=== PATIENT | female | born 2000 | race Caucasian/White ===

== ENCOUNTER 2022-09-16 08:15 | Outpatient (RCR) | payer OTHER, SELFPAY ==
--- NOTE | 2022-08-04 16:39 | PT.OIE ---
Current Diagnoses Stress incontinence (female) (male) (08/04/22) Visit Care Team Role Provider Type Leeanna Bruno PA-C Attending Provider Non-Staff Family Provider Primary Care Provider Referring Provider Specialty: Medical Address: [address] [place] [address] [place], [place], [address] Email: Physical Therapy Initial Evaluation PT-OP-A Visit Information Start: 08/04/22 13:33 Freq: Status: Active Protocol: Document 08/04/22 13:47 AMB (Rec: 08/04/22 14:29 AMB [id number]) Out-Patient Physical Therapy Visit Information Visit Information Visit Type Initial Evaluation Visit Start Time 13:45 Visit Stop Time 14:30 Total Visit Minutes 45 Visit Number 1 PT-OP-B Current Condition Start: 08/04/22 13:33 Freq: Status: Active Protocol: Document 08/04/22 13:47 AMB (Rec: 08/04/22 14:29 AMB [id number]) Current Condition History of Current Condition Onset Date 2020 Current Complaints JAMIL History of Current Condition 1st degree tear vaginal delivery. Leaking started during . Leaking with cough, sneeze, being scared, crunches, weightlifting. Does have back pain with left leg n/t in calf. Longer history of urinary frequency (sometimes has to go to the bathroom right after going) not really sure how long she voids for, thinks maybe every hour. May have a bit of leaking after getting off of toilet. Hasn't really been doing kegels. Personal Factors Other Personal Factors That May Effect migraines, active [place] [employer], Therapy/Recovery back pain PT-OP-C Subjective Start: 08/04/22 13:33 Freq: Status: Active Protocol: Document 08/04/22 13:45 AMB (Rec: 08/04/22 16:27 AMB [id number]) Patient Questionnaires Pelvic Pain and Urgency/Frequency Patient Symptom Scale Pelvic Pain Score 10 PT-OP-I Pelvic Floor Start: 08/04/22 13:33 Freq: Status: Active Protocol: Document 08/04/22 13:45 AMB (Rec: 08/04/22 16:27 AMB [id number]) Pelvic Floor Assessment Urine Pelvic Floor Surgery No Urinary Symptoms Urge Sensation,Dribbling After Urination Leakage Cause Cough,Exercise,Lifting,Sneeze Leaks Per Day daily Voiding Frequency hourly Nocturia 0 Bowel Other Bowel Symptoms denies fecal incontinence Pelvic Clock Pelvic Clock Other no tenderness/tightness noted Prolapse Prolapse Comments none visible, pt denies pelvic heaviness Contraction Ability Voluntary Contraction Weak Voluntary Relaxation Moderate Manual Muscle Testing Left 1 Manual Muscle Testing Right 1 Manual Muscle Testing Anterior 1 Manual Muscle Testing Posterior 2 Muscle Endurance (Seconds) 3 Number of Quick Contractions In 10 3 Seconds Comments Pelvic Floor Comments Pelvic floor fatigues very quickly, really just a flicker of a contraction PT-OP-T Assessment and Plan Start: 08/04/22 13:33 Freq: Status: Active Protocol: Document 08/04/22 13:45 AMB (Rec: 08/04/22 16:39 AMB [id number]) Physical Therapy Assessment Rehab Potential Rehabilitation Potential Good Evaluation Complexity Number of Personal Factors/Comorbidities 1-2 Number of Body Systems Impaired 1-2 Clinical Presentation at Evaluation Stable Impairments Impairments Activity Tolerance,Strength Goals Two Impairment Continence Short Term Goal (STG) Sulma will cough without leaking. STG Duration 5 weeks Revenue Tax Specialist Goal (LTG) Sulma will lift weights without leaking. LTG Duration 10 weeks One Impairment Pelvic floor strength Short Term Goal (STG) Sulma will show improvee her pelvic floor strength by kim for 10 seconds without compensation. STG Duration 5 weeks Custodial Goal (LTG) Sulma will show improved pelvic floor strength by kim her pelvic floor while moving from sit to stand . LTG Duration 10 weeks Assessment Summary Assessment Sulma attends therapy with significant JAMIL after the of her child 15 months ago. She had poor pelvic floor strength, and was only able to hold a weak contraction for 3 seconds. She will benefit from physical therapy to help her strengthen her pelvic floor so that she can reduce her leaking with cough, sneeze, and exercise. Physical Therapy Plan Frequency and Duration Frequency of Treatment 1x/Week Duration of treatment (weeks) 10 Plan of Care Start Date 08/04/22 Plan of Care End Date 10/13/22 Therapeutic Interventions Therapeutic Interventions Home Exercise Program,Manual Therapy,Neuromuscular Re- education,Self-Care/Home Management,Therapeutic Activities,Therapeutic Exercises Modalities Biofeedback,Electric Stimulation Next Visit Focus/Plan Next Note Type Treatment Note Next Visit Plan consider sEMG, start pelvic floor strengthening in supine, seated
--- NOTE | 2022-08-04 16:40 | PT.OPPOC ---
Physical, Occupational & Speech Therapy At [facility] Current Diagnoses Stress incontinence (female) (male) (08/04/22) Visit Care Team Role Provider Type Leeanna Bruno PA-C Attending Provider Non-Staff Family Provider Primary Care Provider Referring Provider Specialty: Medical Address: [address] [place] [address] [place], [address] Email: Plan Of Care PT-OP-T Assessment and Plan Start: 08/04/22 13:33 Freq: Status: Active Protocol: Document 08/04/22 13:45 AMB (Rec: 08/04/22 16:39 AMB [id number]) Physical Therapy Assessment Rehab Potential Rehabilitation Potential Good Evaluation Complexity Number of Personal Factors/Comorbidities 1-2 Number of Body Systems Impaired 1-2 Clinical Presentation at Evaluation Stable Impairments Impairments Activity Tolerance,Strength Goals Two Impairment Continence Short Term Goal (STG) Sulma will cough without leaking. STG Duration 5 weeks Residential Goal (LTG) Sulma will lift weights without leaking. LTG Duration 10 weeks One Impairment Pelvic floor strength Short Term Goal (STG) Sulma will show improvee her pelvic floor strength by kim for 10 seconds without compensation. STG Duration 5 weeks Assembler Metal Furniture Goal (LTG) Sulma will show improved pelvic floor strength by kim her pelvic floor while moving from sit to stand . LTG Duration 10 weeks Assessment Summary Assessment Sulma attends therapy with significant JAMIL after the of her child 15 months ago. She had poor pelvic floor strength, and was only able to hold a weak contraction for 3 seconds. She will benefit from physical therapy to help her strengthen her pelvic floor so that she can reduce her leaking with cough, sneeze, and exercise. Physical Therapy Plan Frequency and Duration Frequency of Treatment 1x/Week Duration of treatment (weeks) 10 Plan of Care Start Date 08/04/22 Plan of Care End Date 10/13/22 Therapeutic Interventions Therapeutic Interventions Home Exercise Program,Manual Therapy,Neuromuscular Re- education,Self-Care/Home Management,Therapeutic Activities,Therapeutic Exercises Modalities Biofeedback,Electric Stimulation Next Visit Focus/Plan Next Note Type Treatment Note Next Visit Plan consider sEMG, start pelvic floor strengthening in supine, seated Plan of Care Dates Plan of Care Start Date 08/04/22 Plan of Care End Date 10/13/22 Electronically Signed by: Cynthia Wood, IMELDA 08/04/22 1640 If you are in agreement with this Plan of Care, please return a signed and dated copy. I have reviewed this Plan of Care and certify that the skilled therapy services above are required to meet the patient?s needs. Physician Signature Date Printed Name and Credentials Clinical Instructor Signature Printed Name and Credentials
--- NOTE | 2022-08-19 08:59 | PT.OTN ---
Current Diagnoses Stress incontinence (female) (male) (08/19/22) Physical Therapy Treatment Note PT-OP-A Visit Information Start: 08/04/22 13:33 Freq: Status: Active Protocol: Document 08/19/22 08:08 AMB (Rec: 08/19/22 08:59 AMB [id number]) Out-Patient Physical Therapy Visit Information Visit Information Visit Type Treatment Note Visit Start Time 08:15 Visit Stop Time 09:00 Total Visit Minutes 45 Visit Number 2 PT-OP-B Current Condition Start: 08/04/22 13:33 Freq: Status: Active Protocol: Document 08/04/22 13:47 AMB (Rec: 08/04/22 14:29 AMB [id number]) Current Condition History of Current Condition Onset Date 2020 Current Complaints JAMIL History of Current Condition 1st degree tear vaginal delivery. Leaking started during . Leaking with cough, sneeze, being scared, crunches, weightlifting. Does have back pain with left leg n/t in calf. Longer history of urinary frequency (sometimes has to go to the bathroom right after going) not really sure how long she voids for, thinks maybe every hour. May have a bit of leaking after getting off of toilet. Hasn't really been doing kegels. Personal Factors Other Personal Factors That May Effect migraines, active duty [employer], Therapy/Recovery back pain PT-OP-C Subjective Start: 08/04/22 13:33 Freq: Status: Active Protocol: Document 08/19/22 08:08 AMB (Rec: 08/19/22 08:59 AMB [id number]) OP-PT Subjective Patient Comments Patient Comments Pt reports toe fracture, is in a boot, back is a bit irritated. Pt is noticing it is challenging to breathe and contract pelvic floor at the same time. PT-OP-I Pelvic Floor Start: 08/04/22 13:33 Freq: Status: Active Protocol: Document 08/04/22 13:45 AMB (Rec: 08/04/22 16:27 AMB [id number]) Pelvic Floor Assessment Urine Pelvic Floor Surgery No Urinary Symptoms Urge Sensation,Dribbling After Urination Leakage Cause Cough,Exercise,Lifting,Sneeze Leaks Per Day daily Voiding Frequency hourly Nocturia 0 Bowel Other Bowel Symptoms denies fecal incontinence Pelvic Clock Pelvic Clock Other no tenderness/tightness noted Prolapse Prolapse Comments none visible, pt denies pelvic heaviness Contraction Ability Voluntary Contraction Weak Voluntary Relaxation Moderate Manual Muscle Testing Left 1 Manual Muscle Testing Right 1 Manual Muscle Testing Anterior 1 Manual Muscle Testing Posterior 2 Muscle Endurance (Seconds) 3 Number of Quick Contractions In 10 3 Seconds Comments Pelvic Floor Comments Pelvic floor fatigues very quickly, really just a flicker of a contraction PT-OP-Q Treatments Start: 08/04/22 13:33 Freq: Status: Active Protocol: Document 08/19/22 08:08 AMB (Rec: 08/19/22 08:59 AMB [id number]) Therapeutic Exercises Supine Exercises 3 Supine Exercise Name hooklying bent knee lift Reps/Minutes 10 2 Supine Exercise Name ball squeeze in hooklying Reps/Minutes 10 Comments pelvic floor contract, cue breath 1 Supine Exercise Name bent knee fall out Reps/Minutes 10 Comments pelvic floor contraction Other Exercises quadruped UE flex Reps/Minutes 10 Comments PF, breathe quadruped Other Exercise Name long holds Comments PF, breathe PT-OP-T Assessment and Plan Start: 08/04/22 13:33 Freq: Status: Active Protocol: Document 08/19/22 08:08 AMB (Rec: 08/19/22 08:59 AMB [id number]) Physical Therapy Assessment Goals Two Impairment Continence Short Term Goal (STG) Sulma will cough without leaking. STG Duration 5 weeks Insole Presser Goal (LTG) Sulma will lift weights without leaking. LTG Duration 10 weeks One Impairment Pelvic floor strength Short Term Goal (STG) Sulma will show improvee her pelvic floor strength by kim for 10 seconds without compensation. STG Duration 5 weeks Halfway Goal (LTG) Sulma will show improved pelvic floor strength by kim her pelvic floor while moving from sit to stand . LTG Duration 10 weeks Assessment Summary Assessment Sulma is doing well with her exercises, needs cues for breathing, given written handout for progressing HEP over the next two weeks, encouraged to continue to contract pelvic floor when lifting in her every day life. Physical Therapy Plan Frequency and Duration Frequency of Treatment 1x/Week Duration of treatment (weeks) 10 Plan of Care Start Date 08/04/22 Plan of Care End Date 10/13/22 Therapeutic Interventions Therapeutic Interventions Home Exercise Program,Manual Therapy,Neuromuscular Re- education,Self-Care/Home Management,Therapeutic Activities,Therapeutic Exercises Modalities Biofeedback,Electric Stimulation Next Visit Focus/Plan Next Note Type Treatment Note Next Visit Plan consider sEMG, start pelvic floor strengthening in supine, seated
--- NOTE | 2022-09-02 15:58 | PT.OTN ---
Current Diagnoses Stress incontinence (female) (male) (09/02/22) Physical Therapy Treatment Note PT-OP-A Visit Information Start: 08/04/22 13:33 Freq: Status: Active Protocol: Document 09/02/22 08:14 AMB (Rec: 09/02/22 09:11 AMB [id number]) Out-Patient Physical Therapy Visit Information Visit Information Visit Type Treatment Note Visit Start Time 08:15 Visit Stop Time 09:00 Total Visit Minutes 45 Visit Number 3 PT-OP-B Current Condition Start: 08/04/22 13:33 Freq: Status: Active Protocol: Document 08/04/22 13:47 AMB (Rec: 08/04/22 14:29 AMB [id number]) Current Condition History of Current Condition Onset Date 2020 Current Complaints JAMIL History of Current Condition 1st degree tear vaginal delivery. Leaking started during . Leaking with cough, sneeze, being scared, crunches, weightlifting. Does have back pain with left leg n/t in calf. Longer history of urinary frequency (sometimes has to go to the bathroom right after going) not really sure how long she voids for, thinks maybe every hour. May have a bit of leaking after getting off of toilet. Hasn't really been doing kegels. Personal Factors Other Personal Factors That May Effect migraines, active duty [employer], Therapy/Recovery back pain PT-OP-C Subjective Start: 08/04/22 13:33 Freq: Status: Active Protocol: Document 09/02/22 08:14 AMB (Rec: 09/02/22 09:11 AMB [id number]) OP-PT Subjective Patient Comments Patient Comments Pt reports she had a positive test on Wednesday. PT-OP-I Pelvic Floor Start: 08/04/22 13:33 Freq: Status: Active Protocol: Document 08/04/22 13:45 AMB (Rec: 08/04/22 16:27 AMB [id number]) Pelvic Floor Assessment Urine Pelvic Floor Surgery No Urinary Symptoms Urge Sensation,Dribbling After Urination Leakage Cause Cough,Exercise,Lifting,Sneeze Leaks Per Day daily Voiding Frequency hourly Nocturia 0 Bowel Other Bowel Symptoms denies fecal incontinence Pelvic Clock Pelvic Clock Other no tenderness/tightness noted Prolapse Prolapse Comments none visible, pt denies pelvic heaviness Contraction Ability Voluntary Contraction Weak Voluntary Relaxation Moderate Manual Muscle Testing Left 1 Manual Muscle Testing Right 1 Manual Muscle Testing Anterior 1 Manual Muscle Testing Posterior 2 Muscle Endurance (Seconds) 3 Number of Quick Contractions In 10 3 Seconds Comments Pelvic Floor Comments Pelvic floor fatigues very quickly, really just a flicker of a contraction PT-OP-Q Treatments Start: 08/04/22 13:33 Freq: Status: Active Protocol: Document 09/02/22 10:01 AMB (Rec: 09/02/22 10:02 AMB [id number]) Self-Care/Home Management Treatment Activities Self-Care/Home Management Activities Pt is interested in sEMG. Pt is newly , discussed precuations with sEMG options for internal vs external. Pt elects internal sensor, but then due to computer issues, we were not able to get accurate assessment. Discussed further strengthening. PT-OP-T Assessment and Plan Start: 08/04/22 13:33 Freq: Status: Active Protocol: Document 09/02/22 08:14 AMB (Rec: 09/02/22 09:11 AMB [id number]) Physical Therapy Assessment Goals Two Impairment Continence Short Term Goal (STG) Sulma will cough without leaking. STG Duration 5 weeks Fpc Goal (LTG) Sulma will lift weights without leaking. LTG Duration 10 weeks One Impairment Pelvic floor strength Short Term Goal (STG) Sulma will show improvee her pelvic floor strength by kim for 10 seconds without compensation. STG Duration 5 weeks Suede Brusher Goal (LTG) Sulma will show improved pelvic floor strength by kim her pelvic floor while moving from sit to stand . LTG Duration 10 weeks Assessment Summary Assessment Continues to have leaks. Encouraged continued work on strengthening. Pt will be moving this summer as her has new orders with the [employer]. Will continue to work on strengthening while she is here. Physical Therapy Plan Frequency and Duration Frequency of Treatment 1x/Week Duration of treatment (weeks) 10 Plan of Care Start Date 08/04/22 Plan of Care End Date 10/13/22 Therapeutic Interventions Therapeutic Interventions Home Exercise Program,Manual Therapy,Neuromuscular Re- education,Self-Care/Home Management,Therapeutic Activities,Therapeutic Exercises Modalities Biofeedback,Electric Stimulation Next Visit Focus/Plan Next Note Type Treatment Note Next Visit Plan consider sEMG, start pelvic floor strengthening in supine, seated
--- NOTE | 2022-09-16 16:00 | PT.OTN ---
Current Diagnoses Stress incontinence (female) (male) (09/16/22) Physical Therapy Treatment Note PT-OP-A Visit Information Start: 08/04/22 13:33 Freq: Status: Active Protocol: Document 09/16/22 08:16 AMB (Rec: 09/16/22 09:00 AMB [id number]) Out-Patient Physical Therapy Visit Information Visit Information Visit Type Treatment Note Visit Start Time 08:15 Visit Stop Time 09:00 Total Visit Minutes 45 Visit Number 4 PT-OP-B Current Condition Start: 08/04/22 13:33 Freq: Status: Active Protocol: Document 08/04/22 13:47 AMB (Rec: 08/04/22 14:29 AMB [id number]) Current Condition History of Current Condition Onset Date 2020 Current Complaints JAMIL History of Current Condition 1st degree tear vaginal delivery. Leaking started during . Leaking with cough, sneeze, being scared, crunches, weightlifting. Does have back pain with left leg n/t in calf. Longer history of urinary frequency (sometimes has to go to the bathroom right after going) not really sure how long she voids for, thinks maybe every hour. May have a bit of leaking after getting off of toilet. Hasn't really been doing kegels. Personal Factors Other Personal Factors That May Effect migraines, active duty [place], Therapy/Recovery back pain PT-OP-C Subjective Start: 08/04/22 13:33 Freq: Status: Active Protocol: Document 09/16/22 08:16 AMB (Rec: 09/16/22 09:00 AMB [id number]) OP-PT Subjective Patient Comments Patient Comments Pt reports test was not accurate. PT-OP-I Pelvic Floor Start: 08/04/22 13:33 Freq: Status: Active Protocol: Document 08/04/22 13:45 AMB (Rec: 08/04/22 16:27 AMB [id number]) Pelvic Floor Assessment Urine Pelvic Floor Surgery No Urinary Symptoms Urge Sensation,Dribbling After Urination Leakage Cause Cough,Exercise,Lifting,Sneeze Leaks Per Day daily Voiding Frequency hourly Nocturia 0 Bowel Other Bowel Symptoms denies fecal incontinence Pelvic Clock Pelvic Clock Other no tenderness/tightness noted Prolapse Prolapse Comments none visible, pt denies pelvic heaviness Contraction Ability Voluntary Contraction Weak Voluntary Relaxation Moderate Manual Muscle Testing Left 1 Manual Muscle Testing Right 1 Manual Muscle Testing Anterior 1 Manual Muscle Testing Posterior 2 Muscle Endurance (Seconds) 3 Number of Quick Contractions In 10 3 Seconds Comments Pelvic Floor Comments Pelvic floor fatigues very quickly, really just a flicker of a contraction PT-OP-Q Treatments Start: 08/04/22 13:33 Freq: Status: Active Protocol: Document 09/16/22 08:16 AMB (Rec: 09/16/22 09:00 AMB [id number]) Therapeutic Exercises Supine Exercises 3 Supine Exercise Name hooklying bent knee lift Reps/Minutes 10 2 Supine Exercise Name ball squeeze in hooklying Reps/Minutes 10 Comments pelvic floor contract, cue breath Neuro Re-Education Treatment Other Activities sEMG Comments see assessment, quick flick and long holds in hooklying PT-OP-T Assessment and Plan Start: 08/04/22 13:33 Freq: Status: Active Protocol: Document 09/16/22 08:16 AMB (Rec: 09/16/22 09:00 AMB [id number]) Physical Therapy Assessment Goals Two Impairment Continence Short Term Goal (STG) Sulma will cough without leaking. STG Duration 5 weeks Cable Television Access Coordinator Goal (LTG) Sulma will lift weights without leaking. LTG Duration 10 weeks One Impairment Pelvic floor strength Short Term Goal (STG) Sulma will show improvee her pelvic floor strength by kim for 10 seconds without compensation. STG Duration 5 weeks Prison Goal (LTG) Sulma will show improved pelvic floor strength by kim her pelvic floor while moving from sit to stand . LTG Duration 10 weeks Assessment Summary Assessment Baseline 3.3, 13.2 avg, max 19 .2. Pt noticing improvement given standing quick flicks and mini squats for HEP progression. Physical Therapy Plan Next Visit Focus/Plan Next Visit Plan Plan to provide progressive HEP.
--- NOTE | 2022-11-25 14:24 | PT.OPDS ---
Current Diagnoses Stress incontinence (female) (male) (09/16/22) Visit Care Team Role Provider Type Leeanna Bruno PA-C Attending Provider Non-Staff Family Provider Primary Care Provider Referring Provider Specialty: Medical Address: [address] [place] [address] [place], [place], [address] Email: Visit Number Visit Number 4 Discharge Summary PT-OP-B Current Condition Start: 08/04/22 13:33 Freq: Status: Active Protocol: Document 08/04/22 13:47 AMB (Rec: 08/04/22 14:29 AMB [id number]) Current Condition History of Current Condition Onset Date 2020 Current Complaints JAMIL History of Current Condition 1st degree tear vaginal delivery. Leaking started during . Leaking with cough, sneeze, being scared, crunches, weightlifting. Does have back pain with left leg n/t in calf. Longer history of urinary frequency (sometimes has to go to the bathroom right after going) not really sure how long she voids for, thinks maybe every hour. May have a bit of leaking after getting off of toilet. Hasn't really been doing kegels. Personal Factors Other Personal Factors That May Effect migraines, active duty [employer], Therapy/Recovery back pain PT-OP-C Subjective Start: 08/04/22 13:33 Freq: Status: Active Protocol: Document 09/16/22 08:16 AMB (Rec: 09/16/22 09:00 AMB [id number]) OP-PT Subjective Patient Comments Patient Comments Pt reports test was not accurate. PT-OP-I Pelvic Floor Start: 08/04/22 13:33 Freq: Status: Active Protocol: Document 08/04/22 13:45 AMB (Rec: 08/04/22 16:27 AMB [id number]) Pelvic Floor Assessment Urine Pelvic Floor Surgery No Urinary Symptoms Urge Sensation,Dribbling After Urination Leakage Cause Cough,Exercise,Lifting,Sneeze Leaks Per Day daily Voiding Frequency hourly Nocturia 0 Bowel Other Bowel Symptoms denies fecal incontinence Pelvic Clock Pelvic Clock Other no tenderness/tightness noted Prolapse Prolapse Comments none visible, pt denies pelvic heaviness Contraction Ability Voluntary Contraction Weak Voluntary Relaxation Moderate Manual Muscle Testing Left 1 Manual Muscle Testing Right 1 Manual Muscle Testing Anterior 1 Manual Muscle Testing Posterior 2 Muscle Endurance (Seconds) 3 Number of Quick Contractions In 10 3 Seconds Comments Pelvic Floor Comments Pelvic floor fatigues very quickly, really just a flicker of a contraction PT-OP-T Assessment and Plan Start: 08/04/22 13:33 Freq: Status: Active Protocol: Document 11/25/22 14:22 AMB (Rec: 11/25/22 14:24 AMB [id number]) Physical Therapy Assessment Goals Two Impairment Continence Short Term Goal (STG) Sulma will cough without leaking. STG Duration Progressing Half-Way Goal (LTG) Sulma will lift weights without leaking. LTG Duration NOT MET One Impairment Pelvic floor strength Short Term Goal (STG) Sulma will show improvee her pelvic floor strength by kim for 10 seconds without compensation. STG Duration MET Half-Way Goal (LTG) Sulma will show improved pelvic floor strength by kim her pelvic floor while moving from sit to stand . LTG Duration Progressing Assessment Summary Assessment At last visit pt was improving symptoms, but decided that she was ready to be done with PT.
== END 2022-11-26 11:24 | disposition home or self-care (01) ==
LOC: PHYS 08:15
PROVIDERS: Absent Provider Physician Assistant Medical; Family Provider Physician Assistant Medical; PCP Physician Assistant Medical; Referring Provider Physician Assistant Medical; Visit Provider Physician Assistant Medical
DX: N39.3 Stress incontinence (female) (male) (principal)
CPT/HCPCS: 97110; 97112; 97161; 97535